=== PATIENT | male | born 1990 | race Asian ===

== ENCOUNTER 2016-07-14 05:49 | Emergency (ER) | payer BC ==
[~2016-07-14] VITALS: Ht 170.2 cm; Wt 93.0 kg
[2016-07-14 06:48] VITALS: BP 145/80; TEMP 97.6
== END 2016-07-14 06:55 | disposition home or self-care (01) ==
LOC: ED 05:49
DX: M46.1 Sacroiliitis, not elsewhere classified (principal); S39.012A Strain of muscle, fascia and tendon of lower back, initial encounter; W10.9XXA Fall (on) (from) unspecified stairs and steps, initial encounter
CPT/HCPCS: 99281

== ENCOUNTER 2016-07-16 16:02 | Inpatient (IN) | payer BC ==
[~2016-07-16] VITALS: Ht 170.2 cm; Wt 87.2 kg
[2016-07-16 16:10] VITALS: BP 122/75; TEMP 98.5
[2016-07-16 17:05] LABS: PLATELET COUNT 334 K/uL (142-355)
[2016-07-16 17:24] LABS: POTASSIUM 4.5 mmol/L (3.6-5.2)
[2016-07-16 21:00] VITALS: BP 119/82; TEMP 98.7
[2016-07-16 21:37] VITALS: BP 118/82; TEMP 98.7; Ht 170.2 cm; Wt 87.2 kg
[2016-07-16 22:00] VITALS: BP 121/86
[2016-07-16 23:00] VITALS: BP 131/82
[2016-07-17] VITALS (20 sets, daily range): BP systolic 112–162; BP diastolic 71–127; TEMP 97.4–98.7
[2016-07-17 02:56] LABS: POTASSIUM 3.6 mmol/L (3.6-5.2); SODIUM 136 mmol/L (136-145)
[2016-07-17 10:49] LABS: POTASSIUM 3.3 mmol/L (3.6-5.2); SODIUM 138 mmol/L (136-145)
[2016-07-18] VITALS: BP 149/98; TEMP 97.4
[2016-07-18 04:00] VITALS: BP 129/77; TEMP 97.7
[2016-07-18 05:48] LABS: PLATELET COUNT 269 K/uL (142-355)
[2016-07-18 05:57] LABS: POTASSIUM 3.1 mmol/L (3.6-5.2); SODIUM 136 mmol/L (136-145)
== END 2016-07-18 15:20 | disposition home or self-care (01) | DRG 639 ==
LOC: ED 16:02 → ICU 18:00 → MED/SURG 07-17 21:10
PROVIDERS: Emergency Medicine; Internal Medicine
DX: E11.00 Type 2 diabetes mellitus with hyperosmolarity without nonketotic hyperglycemic-hyperosmolar coma (NKHHC) (principal)
CPT/HCPCS: 36415; 80048; 80053; 81000; 81002; 82948; 82962; 83036; 83735; 84443; 85027; 96361; 96365; 96372; 96375; 99281; 99285; J1650; J1815; J1885; J3490

== ENCOUNTER 2016-08-21 10:20 | Emergency (ER) | payer BC ==
[~2016-08-21] VITALS: Ht 170.2 cm; Wt 89.8 kg
[2016-08-21 10:27] VITALS: BP 147/96; TEMP 98.1
[2016-08-21 11:26] LABS: PLATELET COUNT 313 K/uL (142-355)
[2016-08-21 11:28] LABS: POTASSIUM 4.2 mmol/L (3.6-5.2); SODIUM 129 mmol/L (136-145)
== END 2016-08-21 13:30 | disposition home or self-care (01) ==
LOC: ED 10:20
DX: E11.65 Type 2 diabetes mellitus with hyperglycemia (principal)
CPT/HCPCS: 36415; 80053; 81000; 82962; 83036; 85027; 96361; 96374; 99284; J1815

== ENCOUNTER 2016-11-23 19:54 | Emergency (ER) | payer BC ==
[~2016-11-23] VITALS: Ht 170.2 cm; Wt 88.9 kg
[2016-11-23 20:54] VITALS: TEMP 98.7
[2016-11-23 21:35] VITALS: BP 128/81
== END 2016-11-23 21:35 | disposition home or self-care (01) ==
LOC: ED 19:54
DX: S20.212A Contusion of left front wall of thorax, initial encounter (principal); S20.211A Contusion of right front wall of thorax, initial encounter; V86.59XA Driver of other special all-terrain or other off-road motor vehicle injured in nontraffic accident, initial encounter
CPT/HCPCS: 96372; 99283; J1885

== ENCOUNTER 2016-11-28 14:45 | Emergency (ER) | payer BC ==
[~2016-11-28] VITALS: Ht 170.2 cm; Wt 87.1 kg
[2016-11-28 15:05] VITALS: TEMP 98.7
[2016-11-28 15:37] LABS: PLATELET COUNT 254 K/uL (142-355)
[2016-11-28 15:46] LABS: SODIUM 137 mmol/L (136-145)
[2016-11-28 16:15] VITALS: BP 128/90
== END 2016-11-28 16:20 | disposition home or self-care (01) ==
LOC: ED 14:45
DX: K52.9 Noninfective gastroenteritis and colitis, unspecified (principal); E86.9 Volume depletion, unspecified; R11.2 Nausea with vomiting, unspecified
CPT/HCPCS: 36415; 80053; 82150; 83690; 85027; 96360; 99284

== ENCOUNTER 2016-11-30 17:52 | Emergency (ER) | payer BC ==
[~2016-11-30] VITALS: Ht 170.2 cm; Wt 87.1 kg
[2016-11-30 18:00] VITALS: TEMP 98.1
[2016-11-30 20:41] VITALS: BP 142/97
== END 2016-11-30 20:40 | disposition home or self-care (01) ==
LOC: ED 17:52
DX: I10 Essential (primary) hypertension (principal)
CPT/HCPCS: 99284

== ENCOUNTER 2016-12-11 00:31 | Emergency (ER) | payer BC ==
[~2016-12-11] VITALS: Ht 172.7 cm; Wt 89.8 kg
[2016-12-11 01:12] LABS: PLATELET COUNT 332 K/uL (142-355)
[2016-12-11 01:27] LABS: POTASSIUM 5.6 mmol/L (3.6-5.2)
[2016-12-11 02:59] VITALS: BP 118/72; TEMP 98.9
== END 2016-12-11 03:00 | disposition home or self-care (01) ==
LOC: ED 00:31
PROVIDERS: Family Medicine
DX: N28.9 Disorder of kidney and ureter, unspecified (principal); E11.65 Type 2 diabetes mellitus with hyperglycemia; R11.2 Nausea with vomiting, unspecified; R10.9 Unspecified abdominal pain
CPT/HCPCS: 36415; 80053; 81000; 85027; 96360; 99284

== ENCOUNTER 2017-05-17 17:00 | Emergency (ER) | payer BC ==
[~2017-05-17] VITALS: Ht 170.2 cm; Wt 89.8 kg
[2017-05-17 20:15] VITALS: BP 113/63; TEMP 99.4
== END 2017-05-17 20:17 | disposition home or self-care (01) ==
LOC: ED 17:00
DX: B34.9 Viral infection, unspecified (principal)
CPT/HCPCS: 87804; 99282

== ENCOUNTER 2018-10-04 19:54 | Emergency (ER) | payer BC ==
[~2018-10-04] VITALS: Ht 170.2 cm; Wt 84.8 kg
[2018-10-04 20:39] LABS: PLATELET COUNT 339 K/uL (142-355)
[2018-10-04 21:02] LABS: POTASSIUM 3.9 mmol/L (3.6-5.2)
[2018-10-05 00:06] VITALS: BP 134/84; TEMP 98.1
== END 2018-10-05 00:07 | disposition home or self-care (01) ==
LOC: ED 19:54
PROVIDERS: Internal Medicine
DX: R31.9 Hematuria, unspecified (principal); R80.9 Proteinuria, unspecified; N17.9 Acute kidney failure, unspecified; K59.00 Constipation, unspecified; E86.0 Dehydration
CPT/HCPCS: 80053; 81000; 85027; 96360; 99284

== ENCOUNTER 2019-03-03 09:04 | Emergency (ER) | payer BC ==
[~2019-03-03] VITALS: Ht 170.2 cm; Wt 86.2 kg
[2019-03-03 09:51] LABS: PLATELET COUNT 366 K/uL (142-355); POTASSIUM 3.7 mmol/L (3.6-5.2)
[2019-03-03 14:00] LABS: POTASSIUM 4.1 mmol/L (3.6-5.2)
[2019-03-03 18:05] VITALS: BP 123/65; TEMP 98.1
== END 2019-03-03 18:05 | disposition home or self-care (01) ==
LOC: ED 09:04
PROVIDERS: Family Medicine
DX: K52.9 Noninfective gastroenteritis and colitis, unspecified (principal); N28.9 Disorder of kidney and ureter, unspecified; E11.9 Type 2 diabetes mellitus without complications; Z79.4 Long term (current) use of insulin
CPT/HCPCS: 36415; 80048; 80053; 81000; 85027; 87502; 96360; 96374; 96375; 99284; J0360; J1815; J2405; J2550; J3490

== ENCOUNTER 2019-03-28 11:27 | Inpatient (IN) | payer BC ==
[~2019-03-28] VITALS: Ht 172.7 cm; Wt 94.0 kg
[2019-03-28 11:31] VITALS: BP 182/101; TEMP 97.7
[2019-03-28 11:53] LABS: PLATELET COUNT 267 K/uL (142-355)
[2019-03-28 12:06] LABS: PARTIAL THROMBOPLASTIN TIME 24.1 SECONDS (24.5-33.6)
[2019-03-28 12:10] LABS: POTASSIUM 3.9 mmol/L (3.6-5.2)
[2019-03-28 12:50] VITALS: BP 191/122
[2019-03-28 13:50] VITALS: BP 182/116
[2019-03-28 15:18] VITALS: BP 151/100
[2019-03-28 20:01] VITALS: BP 187/125; TEMP 98.6; Ht 172.7 cm; Wt 94.0 kg
[2019-03-28 20:15] VITALS: BP 148/90; TEMP 98.6
[2019-03-29] VITALS: BP 174/107; TEMP 98.9
[2019-03-29 04:07] VITALS: BP 128/74; TEMP 99.1
[2019-03-29 05:29] LABS: PLATELET COUNT 226 K/uL (142-355)
[2019-03-29 05:41] LABS: POTASSIUM 3.7 mmol/L (3.6-5.2)
[2019-03-29 08:00] VITALS: BP 144/98; TEMP 98.5
[2019-03-29 16:00] VITALS: BP 158/101; TEMP 98.4
[2019-03-29 20:00] VITALS: BP 156/88; TEMP 98.4
[2019-03-29] MEDS ORDERED: ONDA4TAB3 PO (22:28)
[2019-03-29] MEDS ORDERED: DIPHENATOL2.5 MG PO (22:31)
[2019-03-29] MEDS ORDERED: ZESTRIL40 MG PO (22:32)
[2019-03-29] MEDS ORDERED: TOUJEO MAX300 UNIT/M SC (22:34)
[2019-03-29] MEDS ORDERED: NOVOLOG100 UNIT/M SC (22:35)
[2019-03-29] MEDS ORDERED: [UNRECOGNIZED DRUG - OTHER] PR (22:36)
[2019-03-29] MEDS ORDERED: ROSU10TA PO (22:37)
[2019-03-29] MEDS ORDERED: AMLODIPINE BESYLATE PO (22:37)
[2019-03-29] MEDS ORDERED: ASPIR-8181 MG PO (22:38)
[2019-03-30] VITALS: BP 156/96; TEMP 98.3
[2019-03-30 04:00] VITALS: BP 151/92; TEMP 99.1
[2019-03-30 05:59] LABS: POTASSIUM 3.7 mmol/L (3.6-5.2)
[2019-03-30 08:00] VITALS: BP 185/100; TEMP 98.5
[2019-03-30 12:00] VITALS: BP 187/109; TEMP 98.3
[2019-03-30 16:00] VITALS: BP 141/90; TEMP 98.7
[2019-03-30 20:00] VITALS: BP 140/80; TEMP 98.9
[2019-03-31] VITALS: BP 142/90; TEMP 98.9
[2019-03-31 04:00] VITALS: BP 210/120; TEMP 98.7
[2019-03-31 08:00] VITALS: BP 170/115; TEMP 100.3
[2019-03-31 09:17] LABS: PLATELET COUNT 213 K/uL (142-355)
[2019-03-31 09:43] LABS: POTASSIUM 3.9 mmol/L (3.6-5.2)
[2019-03-31 12:06] VITALS: BP 150/90; TEMP 97.9
[2019-03-31 16:10] VITALS: BP 133/85; TEMP 98.1
[2019-03-31 19:32] VITALS: BP 134/88; TEMP 99.5
[2019-04-01] VITALS: BP 152/97; TEMP 99.1
[2019-04-01 04:00] VITALS: BP 146/88; TEMP 99.1
[2019-04-01 07:40] LABS: PLATELET COUNT 193 K/uL (142-355)
[2019-04-01 07:52] LABS: POTASSIUM 3.8 mmol/L (3.6-5.2)
[2019-04-01 08:23] VITALS: BP 168/110; TEMP 98.9
[2019-04-01 12:07] VITALS: BP 162/94; TEMP 98.6
[2019-04-01 16:04] VITALS: BP 169/94; TEMP 98.4
[2019-04-01 20:00] VITALS: BP 170/102; TEMP 98.2
[2019-04-02] VITALS: BP 140/100; TEMP 98.9
[2019-04-02 04:00] VITALS: BP 160/80; TEMP 98.3
[2019-04-02 08:00] VITALS: BP 162/99; TEMP 98.9
[2019-04-02 12:00] VITALS: BP 186/100; TEMP 98.3
[2019-04-02] MEDS ORDERED: INSU100P SC (12:02)
[2019-04-02] MEDS ORDERED: INSU300I SC (12:05)
== END 2019-04-02 14:23 | disposition short-term general hospital (02) | DRG 558 ==
LOC: ED 11:27 → MED/SURG 17:20
PROVIDERS: Internal Medicine; ADMIT Family Medicine
PROC: 0DB68ZZ Excision of Stomach, Via Natural or Artificial Opening Endoscopic (ICD-10-PCS; principal; 2019-03-29)
DX: M62.82 Rhabdomyolysis (principal); R11.2 Nausea with vomiting, unspecified; K29.60 Other gastritis without bleeding; E11.43 Type 2 diabetes mellitus with diabetic autonomic (poly)neuropathy; E11.65 Type 2 diabetes mellitus with hyperglycemia; K31.84 Gastroparesis; Z79.4 Long term (current) use of insulin; I10 Essential (primary) hypertension; N28.9 Disorder of kidney and ureter, unspecified; R80.8 Other proteinuria
CPT/HCPCS: 36415; 80053; 80202; 80307; 81000; 82150; 82550; 82553; 82948; 83036; 83690; 84484; 85027; 85610; 85730; 87040; 87088; 87651; 93005; 96360; 96365; 96366; 96367; 96372; 96374; 96375; 99220; 99284; G0378; J0360; J1885; J2001; J2175; J2250; J2270; J2405; J2543; J2550; J2704; J2765; J3370; J3490

== ENCOUNTER 2019-04-02 13:51 | Outpatient (CLI) | payer BC ==
[~2019-04-02 13:51] MED LIST: AMLODIPINE BESYLATE PO; ASPIR-8181 MG PO; DIPHENATOL2.5 MG PO; INSU100P SC; INSU300I SC; NOVOLOG100 UNIT/M SC; ONDA4TAB3 PO; ROSU10TA PO; TOUJEO MAX300 UNIT/M SC; ZESTRIL40 MG PO; [UNRECOGNIZED DRUG - OTHER] PR
== END 2019-04-02 14:34 | disposition short-term general hospital (02) ==
LOC: AMB 13:51
DX: R10.13 Epigastric pain (principal); R11.2 Nausea with vomiting, unspecified
CPT/HCPCS: A0425; A0429

== ENCOUNTER 2019-07-07 16:34 | Emergency (ER) | payer BC ==
[~2019-07-07] VITALS: Ht 172.7 cm; Wt 93.0 kg
[2019-07-07 18:07] LABS: PLATELET COUNT 344 K/uL (142-355)
[2019-07-07 18:16] LABS: POTASSIUM 3.1 mmol/L (3.6-5.2)
[2019-07-07 22:59] VITALS: BP 102/55; TEMP 98.2
== END 2019-07-07 22:59 | disposition home or self-care (01) ==
LOC: ED 16:34
PROVIDERS: Family Medicine
DX: E11.65 Type 2 diabetes mellitus with hyperglycemia (principal); I10 Essential (primary) hypertension; K29.70 Gastritis, unspecified, without bleeding
CPT/HCPCS: 80053; 81000; 82962; 85027; 87502; 96372; 96374; 96375; 99283; 99284; J0360; J1815; J2550; J3490

== ENCOUNTER 2020-01-30 20:02 | Emergency (ER) | payer BC ==
[~2020-01-30] VITALS: Ht 172.7 cm; Wt 88.9 kg
[2020-01-30 20:10] VITALS: TEMP 98.7
[2020-01-30 21:26] LABS: PLATELET COUNT 346 K/uL (142-355)
[2020-01-30 21:58] LABS: POTASSIUM 3.3 mmol/L (3.6-5.2)
[2020-01-31 01:01] VITALS: BP 138/98
== END 2020-01-31 01:02 | disposition home or self-care (01) ==
LOC: ED 20:02
PROVIDERS: Family Medicine
DX: K29.60 Other gastritis without bleeding (principal); N28.9 Disorder of kidney and ureter, unspecified; I10 Essential (primary) hypertension; E11.65 Type 2 diabetes mellitus with hyperglycemia; Z79.4 Long term (current) use of insulin
CPT/HCPCS: 80053; 81000; 82150; 83690; 85027; 96372; 99284; J1815

== ENCOUNTER 2020-11-05 13:40 | Emergency (ER) | payer BC ==
[~2020-11-05] VITALS: Ht 172.7 cm; Wt 89.8 kg
[2020-11-05 13:47] VITALS: TEMP 98.1
[2020-11-05 15:42] VITALS: BP 149/90
== END 2020-11-05 15:42 | disposition home or self-care (01) ==
LOC: ED 13:47
DX: S23.3XXA Sprain of ligaments of thoracic spine, initial encounter (principal); I10 Essential (primary) hypertension; M62.830 Muscle spasm of back; V89.2XXA Person injured in unspecified motor-vehicle accident, traffic, initial encounter; Y92.89 Other specified places as the place of occurrence of the external cause
CPT/HCPCS: 99283; J1885

== ENCOUNTER 2020-12-29 06:44 | Inpatient (IN) | payer BC, OTHER ==
[2020-12-29] VITALS (29 sets, daily range): BP systolic 105–141; BP diastolic 61–91; TEMP 98.7
[~2020-12-29] VITALS: Ht 172.7 cm; Wt 104.3 kg
[2020-12-29 07:23] LABS: PLATELET COUNT 252 K/uL (142-355)
[2020-12-29 07:43] LABS: POTASSIUM 4.3 mmol/L (3.6-5.2); SODIUM 135 mmol/L (136-145)
[2020-12-29 07:44] LABS: PARTIAL THROMBOPLASTIN TIME 35.2 SECONDS (24.5-33.6)
[2020-12-30] VITALS (13 sets, daily range): BP systolic 134–151; BP diastolic 81–99; TEMP 97
[2020-12-30 04:39] LABS: PLATELET COUNT 319 K/uL (142-355)
[2020-12-30 04:54] LABS: POTASSIUM 4.5 mmol/L (3.6-5.2)
[2020-12-31] VITALS (13 sets, daily range): BP systolic 120–182; BP diastolic 74–123; TEMP 97.9–98.3; Ht 172.7 cm; Wt 104.3 kg
[2020-12-31 06:44] LABS: PLATELET COUNT 406 K/uL (142-355)
[2020-12-31 06:57] LABS: POTASSIUM 4.2 mmol/L (3.6-5.2)
[2021-01-01] VITALS (11 sets, daily range): BP systolic 111–144; BP diastolic 68–80; TEMP 94.6–97.9
[2021-01-01 05:39] LABS: PLATELET COUNT 340 K/uL (142-355)
[2021-01-01] MEDS ORDERED: NEURONTIN 100M100 MG PO (19:17)
[2021-01-01] MEDS ORDERED: AMLODIPINE BESYLATE PO (19:23)
[2021-01-01 20:51] LABS: POTASSIUM 3.8 mmol/L (3.6-5.2)
[2021-01-02] VITALS (8 sets, daily range): BP systolic 144–154; BP diastolic 60–82; TEMP 97.7–99.4
[2021-01-02 04:55] LABS: PLATELET COUNT 307 K/uL (142-355)
[2021-01-02 05:43] LABS: POTASSIUM 4.2 mmol/L (3.6-5.2)
[2021-01-02 10:56] LABS: POTASSIUM 3.7 mmol/L (3.6-5.2)
[2021-01-02 16:16] LABS: POTASSIUM 3.7 mmol/L (3.6-5.2)
[2021-01-02 19:20] LABS: POTASSIUM 3.7 mmol/L (3.6-5.2)
[2021-01-02 23:12] LABS: POTASSIUM 3.6 mmol/L (3.6-5.2)
[2021-01-03] VITALS (10 sets, daily range): BP systolic 130–165; BP diastolic 60–72; TEMP 96.7–98.7
[2021-01-03 03:48] LABS: POTASSIUM 3.5 mmol/L (3.6-5.2)
[2021-01-03 06:53] LABS: POTASSIUM 3.9 mmol/L (3.6-5.2)
[2021-01-03 07:08] LABS: PLATELET COUNT 262 K/uL (142-355)
[2021-01-03 18:29] LABS: POTASSIUM 4.2 mmol/L (3.6-5.2)
[2021-01-03 23:16] LABS: POTASSIUM 3.9 mmol/L (3.6-5.2)
[2021-01-04 03:31] LABS: PLATELET COUNT 302 K/uL (142-355)
[2021-01-04 03:42] LABS: POTASSIUM 3.9 mmol/L (3.6-5.2)
[2021-01-04 12:43] LABS: POTASSIUM 3.7 mmol/L (3.6-5.2)
[2021-01-04 17:30] LABS: POTASSIUM 4.1 mmol/L (3.6-5.2)
[2021-01-04 20:00] VITALS: TEMP 97.8
[2021-01-05] VITALS: TEMP 97
[2021-01-05 07:07] LABS: POTASSIUM 3.8 mmol/L (3.6-5.2)
[2021-01-05 08:00] VITALS: TEMP 96.5
[2021-01-05 08:17] LABS: PLATELET COUNT 253 K/uL (142-355)
[2021-01-05 16:00] VITALS: TEMP 96
[2021-01-05 17:54] VITALS: TEMP 96.8
[2021-01-05 20:00] VITALS: TEMP 98.1
[2021-01-06] VITALS: TEMP 96.9
[2021-01-06 04:00] VITALS: TEMP 96.8
[2021-01-06 05:38] LABS: PLATELET COUNT 230 K/uL (142-355)
[2021-01-06 06:18] LABS: POTASSIUM 4.8 mmol/L (3.6-5.2)
[2021-01-06 13:29] LABS: POTASSIUM 4.5 mmol/L (3.6-5.2)
[2021-01-06 20:00] VITALS: TEMP 94.4
[2021-01-07 00:01] VITALS: TEMP 95.1
[2021-01-07 00:52] LABS: POTASSIUM 4.1 mmol/L (3.6-5.2)
[2021-01-07 04:00] VITALS: TEMP 97.8
[2021-01-07 06:18] LABS: POTASSIUM 4.4 mmol/L (3.6-5.2)
[2021-01-07 14:46] LABS: POTASSIUM 4.2 mmol/L (3.6-5.2)
[2021-01-07 18:33] LABS: POTASSIUM 4.1 mmol/L (3.6-5.2)
[2021-01-07 20:00] VITALS: TEMP 97.6
[2021-01-07 22:25] LABS: POTASSIUM 3.9 mmol/L (3.6-5.2)
[2021-01-08 05:56] LABS: PLATELET COUNT 148 K/uL (142-355)
[2021-01-08 06:20] LABS: POTASSIUM 3.7 mmol/L (3.6-5.2)
[2021-01-08 10:55] LABS: POTASSIUM 4.4 mmol/L (3.6-5.2)
== END 2021-01-08 15:36 | disposition expired | DRG 207 ==
LOC: ED 06:44 → ICU 12-31 19:24
PROVIDERS: Emergency Medicine; Hospitalist; ADMIT Family Medicine; ATTEND Family Medicine
PROC: 5A1955Z Respiratory Ventilation, Greater than 96 Consecutive Hours (ICD-10-PCS; 2020-12-31)
PROC: 0BH17EZ Insertion of Endotracheal Airway into Trachea, Via Natural or Artificial Opening (ICD-10-PCS; 2020-12-31)
PROC: 02HV33Z Insertion of Infusion Device into Superior Vena Cava, Percutaneous Approach (ICD-10-PCS; 2021-01-01)
PROC: B548ZZA Ultrasonography of Superior Vena Cava, Guidance (ICD-10-PCS; 2021-01-01)
PROC: 05HM33Z Insertion of Infusion Device into Right Internal Jugular Vein, Percutaneous Approach (ICD-10-PCS; principal; 2021-01-02)
PROC: B543ZZA Ultrasonography of Right Jugular Veins, Guidance (ICD-10-PCS; 2021-01-02)
PROC: 30243N1 Transfusion of Nonautologous Red Blood Cells into Central Vein, Percutaneous Approach (ICD-10-PCS; 2021-01-02)
PROC: 30243N1 Transfusion of Nonautologous Red Blood Cells into Central Vein, Percutaneous Approach (ICD-10-PCS; 2021-01-03)
DX: U07.1 COVID-19 (principal); E11.10 Type 2 diabetes mellitus with ketoacidosis without coma; J12.82 Pneumonia due to coronavirus disease 2019; N45.4 Abscess of epididymis or testis; L02.214 Cutaneous abscess of groin; N18.4 Chronic kidney disease, stage 4 (severe); N17.8 Other acute kidney failure; E87.2 Acidosis; I87.8 Other specified disorders of veins; I12.9 Hypertensive chronic kidney disease with stage 1 through stage 4 chronic kidney disease, or unspecified chronic kidney disease; E11.22 Type 2 diabetes mellitus with diabetic chronic kidney disease; E11.65 Type 2 diabetes mellitus with hyperglycemia; D63.1 Anemia in chronic kidney disease; E88.09 Other disorders of plasma-protein metabolism, not elsewhere classified
CPT/HCPCS: 31500; 36415; 36569; 36591; 36600; 36620; 43754; 51702; 80048; 80053; 80061; 80202; 80307; 81000; 81002; 82465; 82550; 82805; 82947; 83036; 83605; 83735; 83880; 84100; 84443; 84484; 85014; 85018; 85027; 85379; 85610; 85730; 86140; 86850; 86900; 86901; 86922; 87070; 87077; 87185; 87205; 87535; 93005; 94002; 94003; 94640; 94664; 94760; 96360; 96365; 96366; 96375; 96376; 99285; C1751; C1768; G0432; J0171; J0360; J0456; J0696; J1100; J1200; J1265; J1450; J1644; J1650; J1815; J1940; J2185; J2250; J2270; J2405; J3370; J3411; J3475; J3490; J7060; P9016; P9047